=== PATIENT | female | born 2000 | race Caucasian/White ===

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

== ENCOUNTER 2021-05-08 14:45 | Outpatient (CLI) | payer BC, SELFPAY ==
--- NOTE | 2021-05-08 14:50 | CT_ITS ---
EXAM: CT NECK WITH INTRAVENOUS CONTRAST : 2000 CLINICAL INDICATION: NECK MASS TECHNIQUE: Helically acquired images were obtained of the neck with intravenous contrast. This CT exam was performed using one or more of the following dose reduction techniques: automated exposure control, adjustment of the mA and/or kV according to patient size, and/or use of iterative reconstruction technique. This report was created using [employer] report generation technology. CONTRAST: IV 75mL Isovue-300 COMPARISON: None. FINDINGS: NASOPHARYNX: Unremarkable. SUPRAHYOID NECK: Symmetric enlargement of the palatine tonsils noted without evidence of abscess. INFRAHYOID NECK: Unremarkable. The larynx, hypopharynx and supraglottis are unremarkable. SUBMANDIBULAR/PAROTID GLANDS: Unremarkable. Glands are normal in size. THYROID: Unremarkable. No enlarged or calcified nodules. BONES/JOINTS: No acute fracture. SOFT TISSUES: Unremarkable. VASCULATURE: No acute findings. LYMPH NODES: Unremarkable. No lymphadenopathy. LUNG APICES: Unremarkable as visualized. CT/Soft Tissue Neck WITH Contrast IMPRESSION: 1. Bilateral tonsillar hypertrophy without evidence of abscess. 2. Otherwise unremarkable CT of the neck. Individualized dose optimization techniques were used for this CT. at 1601 Reported and signed by: Stef Arroyo MD Electronically Signed: Stef Arroyo MD at 16:00 EST Reading Location ID and State: [address] [place] [address] Tel , Service support ,
== END 2021-05-08 23:59 | disposition home or self-care (01) ==
LOC: CT 14:48
PROVIDERS: Referring Provider Otolaryngology; Visit Provider Otolaryngology
DX: R22.1 Localized swelling, mass and lump, neck (principal)
CPT/HCPCS: 70491; Q9967